=== PATIENT | female | born 1975 | race Caucasian/White ===

== ENCOUNTER 2018-07-15 19:03 | Emergency (ER) | payer OTHER, SELFPAY ==
[2018-07-15 19:04] VITALS: BP 165/96; PULSE 73; RESP 18; TEMP 36.4; O2SAT 98; BMI 33.9
--- NOTE | 2018-07-15 20:21 | CT_ITS ---
STUDY: CT ABDOMEN AND PELVIS WITHOUT CONTRAST REASON FOR EXAM: Female, 42 years old. Right lower quadrant pain RADIATION DOSAGE (If Supplied By Facility): CTDIvol = ( 23.36 ) mGy, DLP = ( 1085.25 ) mGycm TECHNIQUE: Transaxial images were obtained from the lower chest to the upper thighs without oral contrast, and without intravenous contrast. Sagittal and coronal images were reconstructed. Individualized dose optimization techniques were used for this CT. COMPARISON: None. FINDINGS: There is minimal dependent atelectasis in both lung bases. There is no pleural effusion. The heart is normal in size. The liver is unremarkable. The gallbladder is surgically absent. The spleen is unremarkable. The pancreas is unremarkable. The adrenal glands are unremarkable. The right kidney is unremarkable. There is no dilatation of the collecting system in the right kidney. The left kidney is unremarkable. There is no dilatation of the collecting system in the left kidney. The stomach is unremarkable. The small bowel is unremarkable. There are diverticula in the distal colon without adjacent stranding. The appendix is visualized and appears normal. There are minimal scattered vascular calcifications. The IVC is unremarkable. There are small lymph nodes scattered in the mesentery. There is no free fluid in the abdomen. The urinary bladder is unremarkable. The uterus is normal in size and appearance. There are cystic masses in the right ovary measuring 1.8 cm and 1.7 cm. There are two coarse calcifications in the region of the right ovary. There are small phleboliths scattered in the lower pelvis. There is a small umbilical hernia containing fat. There are mild degenerative disc changes at L4-5. CT/Abdomen/Pelvis without Cont IMPRESSION: No acute abnormalities are seen in the abdomen or pelvis. There are no acute bowel abnormalities. The appendix is normal. There is no ascites, free air, inflammation or significant lymphadenopathy. There are two cystic masses in the right ovary measuring less than 2 cm in size. There are also two coarse calcifications in the region of the right ovary. The findings are nonspecific on CT. Electronically Signed: Mira Marc MD at 21:39 EST Tel Direct: [phone], Service support ,
--- NOTE | 2018-07-15 20:28 | ED.RN ---
dr. wayne bishop with ct before level results
[2018-07-15 20:47] LABS: Bacteria 0 SEEN /hpf (None Seen); Mucous, Urine 0 SEEN /hpf (<or=2+); Red Blood Cells-Urine 0 SEEN /hpf (0-5)
[2018-07-15 20:51] LABS: Color, Urine Yellow (Yellow); Glucose, Dipstick Normal (Normal); Ketone-Dipstick Negative (Negative); Leukocyte Esterase-Dipstick Negative /ul (Negative); Nitrite-Dipstick Negative (Negative); Occult Blood-Urine Negative /ul (Negative); Protein-Dipstick Negative (Negative); Urine Bilirubin Dipstick Negative (Negative); Urine Clarity Clear (Clear); Urine Urobilinogen Normal (Normal)
[2018-07-15 20:54] LABS: Internal QC Validated? YES +Cl - CLEAR BKGD; Pregnancy, Urine Negative Negative
[2018-07-15 20:59] LABS: Absolute Lymphocyte Count 1.77 X10^3/ul (0.83-4.51); Absolute Neutrophil Count 3.1 X10^3/uL (2.0-7.7); Basophil# 0.04 X10^3/uL; Basophil% 0.7 % (0-1); Eosinophil# 0.18 X10^3/uL; Hemoglobin 13.2 g/dl (12.0-15.0); Lymphocyte # 1.77 X10^3/ul (4.0); Lymphocyte % 29.2 % (19-41); Mean Corpuscular Hgb 33.2 pg (27.0-32.0); Mean Corpuscular Volume 100.8 fL (81-99); Mean Platelet Vol. 10.5 fl (6.2-12.0); Monocyte# 0.94 X10^3/uL; Monocyte% 15.5 % (0-10); Neutrophil # 3.12 X10^3/uL (2.7-7.7); Neutrophil % 51.3 % (47-70); POSITIVE COUNT NO; POSITIVE DIFFERENTIAL NO; POSITIVE MORPHOLOGY NO; Platelet Count 226 K/mm3 (150-450); RBC Distribution Width CV 14.1 % (11.6-14.6); Red Blood Count 3.97 M/mm3 (4.2-5.4); Squamous Epithelial Cells - UA 0-5 SEEN /hpf (5-10); White Blood Cells 5-10 SEEN /hpf (0-5); White Blood Count 6.1 K/mm3 (4.4-11.0)
[2018-07-15 21:00] LABS: Yeast-Urine 2+ /hpf (None Seen)
[2018-07-15 21:07] LABS: ALB/GLOB Ratio 1.1 RATIO (0.9-2.4); AST(SGOT) 39 U/L (15-37); Alanine Aminotransfer ALT/SGPT 48 U/L (13-56); Albumin, Serum 3.7 g/dL (3.2-5.0); Alkaline Phosphatase 60 U/L (45-117); Anion Gap 8 (5-15); BUN 13 mg/dL (7-18); BUN/Creat Ratio 13.7 RATIO (10-20); Calcium,Total 7.9 mg/dL (8.5-10.1); Chloride 103 mmol/L (98-107); Creatinine, Serum 0.95 mg/dL (0.55-1.02); EST Glomerular Filtration Rate 68 mL/min (>60); Est Glom Filt Rate - Afr Amer 82 mL/min (>60); Estimated Creatinine Clearance 70.74 ml/min; Globulin 3.3 g/dL (2.2-4.2); Glucose 88 mg/dL (74-106); Potassium 3.7 mmol/L (3.5-5.1); Sodium Level 137 mmol/L (136-145)
--- NOTE | 2018-07-15 21:45 | ED.VISSUMM ---
- ER Visit Summary Date of Service: 07/15/18 Chief Complaint: Abdominal pain History of Present Illness: The patient is a 42 F with right lower abdominal pain since yesterday. She has no pelvic pain. She has no fever or chills. She has no nausea vomiting she had some loose stools. No chest pain shortness of breath or flank pain no urinary symptoms. Physical Examination: Not appear in acute distress. Moist mucous membranes, no obvious facial deformity No C-spine tenderness supple neck. Regular rate and rhythm without any obvious murmurs Clear lungs bilaterally speaking in full sentences without any obvious respiratory distress Abdomen soft with slight right lower quadrant pain, no pelvic pain, no guarding or rebound Moves all extremities without any difficulty or pain. Skin does not show any obvious rashes or lesions, no trauma. Alert oriented ?3 with no gross focal deficit Emergency Department Course and Treatment: Patient has an unremarkable CT with a normal appendix, her white counts normal. She appears well she has a negative urinalysis. She does have some cysts on her ovary which may explain her pain, she may have an enteritis which may cause her pain either way she will be discharged with instructions to return if her pain worsens she gets fever chills or any new symptoms. Discharge stable condition Impression: Abdominal pain This note was generated with [employer] dictation software. It may contain incorrect words, spelling, and punctuation that were not noted in review of the chart prior to signing ED Disposition - Plan for ED Patient: Disposition: Home or Assisted Living Chief Complaint: Abd Pain Instructions: ED Abdominal Pain Unkn Cause Referrals: Zachary Cruz MD [Primary Care Provider] - 1 Day for another exam
[2018-07-15 22:08] VITALS: BP 140/91; PULSE 63; RESP 16; O2SAT 95
== END 2018-07-15 22:09 | disposition home or self-care (01) ==
PROVIDERS: Emergency Provider Emergency Medicine
DX: R10.9 Unspecified abdominal pain (principal); R19.7 Diarrhea, unspecified
CPT/HCPCS: 74176; 80053; 81001; 81025; 85025; 99283; A4216

== ENCOUNTER → 2018-08-01 14:06 | Outpatient (CLI) | payer OTHER, SELFPAY ==
[2018-07-15 19:04] VITALS: BMI 33.9
== END ==
PROVIDERS: Referring Provider Otolaryngology Otolaryngology/Facial Plastic Surgery; Visit Provider Otolaryngology Otolaryngology/Facial Plastic Surgery
DX: H83.09 Labyrinthitis, unspecified ear (principal)
CPT/HCPCS: 87070; 87077; 87205

== ENCOUNTER 2020-12-19 22:37 | Emergency (ER) | payer MEDICAID, SELFPAY ==
[2020-12-19 22:37] VITALS: BP 150/95; PULSE 77; RESP 18; TEMP 36.1; O2SAT 97; BMI 32.6
[2020-12-19 23:30] LABS: Absolute Lymphocyte Count 2.23 X10^3/uL (0.83-4.51); Absolute Neutrophil Count 3.4 X10^3/uL (2.0-7.7); Basophil# 0.06 X10^3/uL; Basophil% 0.9 % (0-1); Eosinophil# 0.39 X10^3/uL; Eosinophils% 5.7 % (0-5); Hematocrit 42.1 % (37-47); Lymphocyte # 2.23 X10^3/ul (4.0); Lymphocyte % 32.8 % (19-41); Mean Corp Hgb Conc 33.3 g/dL (32-36); Mean Corpuscular Hgb 31.1 pg (27.0-32.0); Mean Corpuscular Volume 93.6 fL (81-99); Mean Platelet Vol. 10.4 fl (6.2-12.0); Monocyte# 0.74 X10^3/uL; Monocyte% 10.9 % (0-10); NRBC Flagged by Analyzer 0 % (0-5); Neutrophil # 3.36 X10^3/uL (2.7-7.7); Neutrophil % 49.6 % (47-70); Platelet Count 263 K/mm3 (150-450); RBC Distribution Width CV 12.9 % (11.6-14.6); RBC Distribution Width SD 44.2 fl (35.1-43.9); White Blood Count 6.8 K/mm3 (4.4-11.0)
[2020-12-20 00:04] LABS: Anion Gap 5 (5-15); BUN 11 mg/dL (7-18); BUN/Creat Ratio 11.7 RATIO (10-20); Calcium,Total 8.2 mg/dL (8.5-10.1); Chloride 105 mmol/L (98-107); Creatinine, Serum 0.94 mg/dL (0.55-1.02); EST Glomerular Filtration Rate 68 mL/min (>60); Est Glom Filt Rate - Afr Amer 82 mL/min (>60); Estimated Creatinine Clearance 66.58 ml/min; Glucose 90 mg/dL (74-106); Potassium 3.6 mmol/L (3.5-5.1); Sodium Level 140 mmol/L (136-145)
[2020-12-20 00:37] VITALS: BP 146/79; PULSE 64; RESP 14; O2SAT 98
[2020-12-20 00:40] VITALS: BP 146/79; PULSE 64; RESP 14; TEMP 36.6; O2SAT 98
[2020-12-20 01:00] VITALS: BP 144/71; PULSE 63; RESP 14; TEMP 36.6; O2SAT 98
--- NOTE | 2020-12-20 01:16 | RAD_ITS ---
STUDY: X-RAY CHEST REASON FOR EXAM: Female, 45 years old. cough TECHNIQUE: AP portable chest. COMPARISON: June 28, 2017. FINDINGS: The lungs are clear and expanded. There is no demonstrated pleural abnormality. Normal size heart. Normal mediastinum and samia. Normal visualized pulmonary arteries. Normal visualized aortic arch and descending thoracic aorta. Normal visualized thoracic spine. Normal visualized ribs, clavicles, and shoulders. There is no demonstrated abnormality of the visualized soft tissue structures of the upper abdomen. RAD/Chest 1 View (Portable) IMPRESSION: Normal x-ray examination of the chest. Electronically Signed: Ryan Shearer MD at 3:01 EDT , Service support ,
--- NOTE | 2020-12-20 01:16 | CT_ITS ---
STUDY: CT BRAIN WITHOUT CONTRAST REASON FOR EXAM: Female, 45 years old. headache RADIATION DOSAGE (If Supplied By Facility): CTDIvol = ( 44.99 ) mGy, DLP = ( 796.11 ) mGycm TECHNIQUE: Transaxial CT imaging of the brain was performed without administration of intravenous contrast material. Individualized dose optimization techniques were used for this CT. COMPARISON: No relevant priors. FINDINGS: Normal soft tissue structures. Normal calvarium. Normal size ventricles and extra-axial spaces for the patient''s age. Normal white matter tracts of the cerebral hemispheres. Normal basal ganglia and thalami. Normal brainstem. Normal cerebellum. There is no intracranial hemorrhage. There are no findings of an acute ischemic infarction. Normal visualized paranasal sinuses. Mastoid air cells are well aerated. CT/Brain/Head without Contrast IMPRESSION: Normal unenhanced CT scan of the brain. Electronically Signed: Ryan Shearer MD at 3:28 EDT , Service support ,
--- NOTE | 2020-12-20 01:16 | EKG12_ITS ---
Test Reason : HEADACHE Blood Pressure : / mmHG Vent. Rate : 062 BPM Atrial Rate : 062 BPM P-R Int : 128 ms QRS Dur : 094 ms QT Int : 410 ms P-R-T Axes : 043 060 066 degrees QTc Int : 416 ms Normal sinus rhythm Low voltage QRS (Limb Leads) Confirmed by BASILIA JOHN, JACINTO ([id number]), editorial director JENNIFER LUCERO ([id number]) on 12/21/2020 11:27:31 AM Referred By: NILAY Confirmed By:JACINTO CUI MD
[2020-12-20] MEDS: Ketorolac 15 MG/ML Vial IV (01:28)
[2020-12-20] MEDS: 0.9% Normal Saline 1,000 ML 1000 ML IV (01:29)
[2020-12-20 02:00] VITALS: BP 117/71; PULSE 75; RESP 15; TEMP 36.4; O2SAT 98
[2020-12-20 02:09] LABS: Mucous, Urine 0 SEEN /hpf (<or=2+); Squamous Epithelial Cells - UA 0 SEEN /hpf (5-10); White Blood Cells 0 SEEN /hpf (0-5)
[2020-12-20 02:11] LABS: Color, Urine Yellow (Yellow); Glucose, Dipstick Normal (Normal); Ketone-Dipstick Negative (Negative); Leukocyte Esterase-Dipstick Negative /ul (Negative); Nitrite-Dipstick Negative (Negative); Occult Blood-Urine 10 /ul (Negative); Protein-Dipstick 15 mg/dl (Negative); Specific Gravity, Urine 1.015 (1.002-1.030); Urine Bilirubin Dipstick Negative (Negative); Urine Clarity Clear (Clear); Urine Urobilinogen Normal (Normal)
[2020-12-20 02:16] LABS: Bacteria RARE /hpf (None Seen); Internal QC Validated? YES +Cl - CLEAR BKGD; Pregnancy, Urine Negative Negative; Red Blood Cells-Urine 0-5 SEEN /hpf (0-5)
[2020-12-20 03:00] VITALS: BP 132/83; PULSE 79; RESP 15; TEMP 36.6; O2SAT 98
--- NOTE | 2020-12-20 04:06 | ED.DCSUM_ITS ---
History of Present Illness Chief Complaint: Headache Informant: Patient Onset: Days Context: Gradual Onset Timing: Continuous Narrative: Patient is a 45-year-old female with history of rheumatoid arthritis, on a monthly injection as well as methotrexate presenting with 5 days of viral symptoms. She states she has had decreased appetite, nausea, fatigue, headache and sore throat. She notes her sore throat has been improving. She has had some slight pressure in her chest but denies any difficulty breathing, cough or shortness of breath. States overall insulin she does feel that she needs to take a deep breath. She denies any fever but has had sweats. She denies any urinary symptoms. She denies any sense abdominal pain, vomiting or change in bowel habits. She is currently on her menstrual cycle. Patient did have Covid in August 2020. She states she had 2 - Covid test within the last week. She started feel dizzy tonight which is new and was concerned because she has had her symptoms for 5 days so she came to the emergency room for further evaluation. She denies any history of headaches. She notes that she did have very similar symptoms when she had Covid in August. No other complaints at this time. Denies any sick contacts. Takes Naprosyn daily but is not been taking any other medications. Past Medical History - Allergies and Home Meds Allergies/Adverse Reactions: Allergies No Known Allergies Allergy (Verified 12/19/20 22:40) Primary Care Physician: Ayaka Davenport DO [Primary Care Provider] - Past Medical History: - - Rheumatoid arthritis Surgical History: cholecystectomy, - - Shoulder surgery Lives: Spouse/ Significant Other Smoking Status: Former smoker Review of Systems General: Reports: Chills, Malaise, Sweats. Denies: Fever Eyes: Denies: Visual changes - bilaterally, Diplopia ENT: Reports: Sore throat. Denies: Rhinorrhea Cardiovascular: Reports: - - Pressure. Denies: Chest pain, Palpitations Respiratory: Reports: Dyspnea. Denies: Cough, Dyspnea on exertion Gastrointestinal: Reports: Nausea. Denies: Abdominal pain, Vomiting, Diarrhea, Melena, Hematochezia Genitourinary: Denies: Dysuria, Hematuria, Frequency Musculoskeletal: Denies: Back pain, Extremity Pain Skin: Denies: Rash, Wounds Neurological: Reports: Headache. Denies: Weakness, Numbness Physical Exam Vital Signs/Narrative: Vital Signs Temp Pulse Resp BP Pulse Ox 12/20/20 03:00 98 F 79 15 132/83 H 98 12/20/20 02:00 97.5 F L 75 15 117/71 98 12/20/20 01:00 98 F 63 14 144/71 H 98 12/20/20 00:40 98 F 64 14 146/79 H 98 12/20/20 00:37 64 14 146/79 H 98 Inital Vital Signs reviewed: Yes General: Well nourished, Well developed, No Acute Distress Head: Normocephalic, Atraumatic Eyes: Perrl, EOMI ENT: Moist mucous membranes, No rhinorrhea, TM's clear Neck: Supple, Nontender, No JVD, - - No meningeal signs Cardiovascular: Regular rate, Regular rhythm, No murmurs Respiratory: No distress, CTA bilaterally, Chest nontender Abdomen: Soft, Nontender, Nondistended, Normal bowel sounds Back: Nontender, Normal Inspection Extremities: Nontender, No edema Skin: Normal color, No rash Neurological: Alert, Oriented x3, Cranial nerves II-XII grossly intact, Normal Strength, Normal Sensation, Normal Gait, - - Normal coordination, no truncal ataxia. Negative for: Parasthesia, Weakness Psychological: Normal affect, Normal Mood Diagnostic/Tx/Re-eval Chest X-Ray - ED: 1 View, Read by ED Physician, Read by Radiologist, No Acute Disease Clinical Impression(s) from Imaging Studies Brain CT 12/20/20 01:16 IMPRESSION: Normal unenhanced CT scan of the brain. Electronically Signed: Ryan Shearer MD at 3:28 EDT , Service support , Chest X-Ray 12/20/20 01:16 IMPRESSION: Normal x-ray examination of the chest. Electronically Signed: Ryan Shearer MD at 3:01 EDT , Service support , Laboratory Data 12/19/20 12/19/20 12/20/20 23:13 23:13 01:30 WBC 6.8 RBC 4.50 Hgb 14.0 Hct 42.1 MCV 93.6 MCH 31.1 MCHC 33.3 RDW Std Deviation 44.2 H RDW Coeff of Trevon 12.9 Plt Count 263 MPV 10.4 Immature Gran % (Auto) 0.100 Neut % (Auto) 49.6 Lymph % (Auto) 32.8 Buchanan % (Auto) 10.9 H Eos % (Auto) 5.7 H Baso % (Auto) 0.9 Absolute Neuts (auto) 3.4 Absolute Lymphs (auto) 2.23 Nucleated RBC % 0 Sodium 140 Potassium 3.6 Chloride 105 Carbon Dioxide 30.0 Anion Gap 5 BUN 11 Creatinine 0.94 Estim Creat Clear Calc 66.58 Est GFR (MDRD) Af Amer 82 Est GFR (MDRD) Non-Af 68 BUN/Creatinine Ratio 11.7 Glucose 90 Calcium 8.2 L Troponin I Urine Color Urine Clarity Urine pH Ur Specific [place] Urine Protein Urine Glucose (UA) Urine Ketones Urine Occult Blood Urine Nitrite Urine Bilirubin Urine Urobilinogen Ur Leukocyte Esterase Urine RBC Urine WBC Ur Squamous Epith Cells Urine Bacteria Urine Mucus Urine Test COVID-19 ([facility]) Not Detected 12/20/20 12/20/20 02:05 02:20 WBC RBC Hgb Hct MCV MCH MCHC RDW Std Deviation RDW Coeff of Trevon Plt Count MPV Immature Gran % (Auto) Neut % (Auto) Lymph % (Auto) Buchanan % (Auto) Eos % (Auto) Baso % (Auto) Absolute Neuts (auto) Absolute Lymphs (auto) Nucleated RBC % Sodium Potassium Chloride Carbon Dioxide Anion Gap BUN Creatinine Estim Creat Clear Calc Est GFR (MDRD) Af Amer Est GFR (MDRD) Non-Af BUN/Creatinine Ratio Glucose Calcium Troponin I < 0.015 Urine Color Yellow Urine Clarity Clear Urine pH 7.0 Ur Specific [place] 1.015 Urine Protein 15 H Urine Glucose (UA) Normal Urine Ketones Negative Urine Occult Blood 10 H Urine Nitrite Negative Urine Bilirubin Negative Urine Urobilinogen Normal Ur Leukocyte Esterase Negative Urine RBC 0-5 SEEN Urine WBC 0 SEEN Ur Squamous Epith Cells 0 SEEN Urine Bacteria RARE Urine Mucus 0 SEEN Urine Test Negative COVID-19 ([facility]) - Rhythm Strip Rhythm Strip: Sinus Rhythm Rate: 62 Ectopy: None - EKG Initial EKG Interpretation: Sinus Rhythm, - - Normal sinus rhythm Normal axis Normal intervals Normal ST segments compared to prior EKG on 06/28/2017, no acute changes - Medical Decision Making Patient is evaluated for 5 days of generalized malaise and viral symptoms. She had associated headache and dizziness. She appears nontoxic and in no acute distress. No focal neurologic deficits. No meningeal signs. No obvious source of infection. Work-up including Chest x-ray, CBC, BMP, troponin and urinalysis do not show any acute process. Covid test is negative. CT the brain obtained as patient denies any history of significant headaches or migraines which does not show any acute process. Respiratory PCR panel still pending. Panel result is negative. Patient is contacted and informed of her results via voicemail. Patient tried to follow-up with her primary care doctor. The exact cause of her symptoms not clear but she is safe for outpatient follow-up. She is given prescription for Zofran patient is counseled on signs and symptoms requiring return to the emergency room. Patient verbalizes agreement and understand this plan. Patient discharged home in stable and improved condition. ED Disposition - Plan for ED Patient: Disposition: Home or Assisted Living Diagnosis: Headache, Nausea, Viral syndrome Instructions: ED Headache Unspecified, ED Viral Syndrome (Adult) Prescriptions: Ondansetron [Zofran Odt] 4 mg PO Q8H PRN PRN #10 tablet PRN Reason: Nausea Prescription Printed Referrals: Ayaka Davenport DO [Primary Care Provider] - Additional Instructions: Your work-up here today did not show any obvious cause of your symptoms. Your Covid test was negative. Further viral panel is still pending. Continue to drink plenty of fluids and take Tylenol as needed for headache and symptoms. Follow-up with your primary care doctor or return to the emergency room if you have worsening symptoms.
[2020-12-20 04:20] VITALS: BP 130/81; PULSE 74; RESP 16; O2SAT 97
[2020-12-20] MEDS: proCHLORPERazine 10 MG/2 ML Vial IV (04:20)
== END 2020-12-20 04:23 | disposition home or self-care (01) ==
PROVIDERS: Emergency Provider Emergency Medicine; PCP Internal Medicine
DX: B34.9 Viral infection, unspecified (principal); R51.9 Headache, unspecified; R11.0 Nausea; R42 Dizziness and giddiness; M06.9 Rheumatoid arthritis, unspecified; Z87.891 Personal history of nicotine dependence; Z90.49 Acquired absence of other specified parts of digestive tract; Z86.16 Personal history of COVID-19
CPT/HCPCS: 70450; 71045; 80048; 81001; 81025; 84484; 85025; 87633; 87635; 93005; 96361; 96374; 96375; 99283; J7030; A4216; U0002